=== PATIENT | female | born 1940 | race Caucasian/White ===

== ENCOUNTER → 2021-05-21 | Outpatient (CLI) | payer MEDICARE | END | disposition home or self-care (01) | LOC: LABPAT 08:47 | PROVIDERS: ATTEND Orthopaedic Surgery | DX: Z01.812 Encounter for preprocedural laboratory examination (principal); M17.12 Unilateral primary osteoarthritis, left knee; Z22.322 Carrier or suspected carrier of Methicillin resistant Staphylococcus aureus | CPT/HCPCS: 87070 ==

== ENCOUNTER → 2021-06-05 | Outpatient (CLI) | payer MEDICARE | END | disposition home or self-care (01) | LOC: LABPAT 09:05 | PROVIDERS: ATTEND Orthopaedic Surgery | DX: Z01.818 Encounter for other preprocedural examination (principal); M17.12 Unilateral primary osteoarthritis, left knee; Z22.322 Carrier or suspected carrier of Methicillin resistant Staphylococcus aureus | CPT/HCPCS: 93005 ==

== ENCOUNTER 2021-06-18 11:06 | Day surgery (SDC) | payer MEDICARE, OTHER ==
[2021-06-12 09:26] VITALS: BMI 23.8
--- NOTE | 2021-06-17 11:27 | HP ---
HISTORY AND PHYSICAL DATE OF SURGERY: 06/18/2021 Josef Mckeon is a 80-year-old patient seen with symptomatic left knee osteoarthritis. After treatment options were discussed with her, she elected to proceed with left total knee arthroplasty. Consent regarding the procedure was obtained. Medical clearance was provided by Dr. Farhan Mac. PAST MEDICAL HISTORY: Anxiety. PAST SURGICAL HISTORY: Total hip arthroplasty. DAILY MEDICATIONS: , Celebrex. ALLERGIES: PENICILLIN. SOCIAL HISTORY: She denies current tobacco use. PHYSICAL EVALUATION OF THE LEFT KNEE: Range of motion is negative 2/3 to 115. Tenderness, medial joint line. Crepitus, medial and patellofemoral compartments with range of motion. Pain with patellofemoral compression. Ligaments stable. Hip rotation without pain. Distal neurovascular exam is intact. RADIOGRAPHS: Radiographs of the left knee revealed severe osteoarthritic changes. IMPRESSION: Left knee osteoarthritis. PLAN: Left total knee arthroplasty. MMODL / IJN: [id number] /
[~2021-06-18 11:06] MED LIST: ACETAMINOPHEN TAB 500 MG TAB PO PRN; DEXAMETHASONE SOD PHOSPHATE 4 MG/ML 1 ML VIAL IV ONE; LACTATED RINGERS 1,000 ML IV SCH; MELOXICAM 7.5 MG TAB PO PRN; MIDAZOLAM 2 MG/2 ML VIAL IV PRN; MORPHINE SULFATE 2 MG/ML SYRINGE IV PRN; ONDANSETRON 4 MG/2 ML VIAL IVP ONE; ROPIVACAINE/EPI/CLONIDINE/KET 50 ML SYRINGE MISCELLANE PRN; TRANEXAMIC ACID 1,000 MG in SODIUM CHLORIDE 0.9% 100 ML IVPB PRN
[2021-06-18] MEDS ORDERED: fentaNYL (PF) 50 MCG/ML 2 ML AMP IVP ONE (12:23)
[2021-06-18] MEDS ORDERED: MIDAZOLAM 2 MG/2 ML VIAL IVP ONE (12:23)
[2021-06-18] MEDS ORDERED: SODIUM CHLORIDE 0.9% 100 ML BAG ONE (12:52)
[2021-06-18] MEDS ORDERED: TRANEXAMIC ACID 1,000 MG/10 ML VIAL ONE (12:52)
[2021-06-18] MEDS ORDERED: ROPIVACAINE 5 MG/ML 30 ML VIAL ONE (12:52)
[2021-06-18] MEDS ORDERED: MIDAZOLAM 2 MG/2 ML VIAL ONE (12:52)
[2021-06-18] MEDS ORDERED: SODIUM CHLORIDE 0.9% (PF) 10 ML VIAL ONE (12:52)
[2021-06-18] MEDS ORDERED: fentaNYL (PF) 50 MCG/ML 2 ML AMP ONE (12:52)
[2021-06-18] MEDS ORDERED: PROPOFOL 10 MG/ML 20 ML VIAL IV ONE (12:52)
[2021-06-18] MEDS ORDERED: ceFAZolin 1,000 MG in SODIUM CHLORIDE 0.9% 1,000 ML IRRIGATION ONE (13:28)
--- NOTE | 2021-06-18 14:25 | P.ANPRN ---
Procedure Note - Anesthesia - Nerve Block Performed Right Adductor Canal Infusion Time Out Performed: Yes (1222) Date of Procedure: 06/18/21 Procedure Start Time: :23 Procedure Stop Time: : Location of Patient: PreOp Indication: Acute Post-Operative Pain, Requested by Surgeon Specifically requested for management of pain by DrDiallo: Hadley Kulkarni Sedation Type: Sedate with meaningful contact maintained Preparation: Sterile Prep Position: Supine Catheter Depth at Skin (cm): 8 Catheter: Indwelling Needle Types: Pajunk Needle Gauge: 21 Ultrasound used to visualize needle placement: Yes Ultrasound used to observe medication spread: Yes Injectate: 0.5% Ropivacaine (see comment for volume) Blood Aspirated: No Pain Paresthesia on Injection Noted: No Resistance on Injection: Normal Image Stored and Saved: Yes Events: Uneventful and Well Tolerated
--- NOTE | 2021-06-18 14:26 | P.ANPRN ---
Procedure Note - Anesthesia - Nerve Block Performed Left iPack Single Time Out Performed: Yes (1222) Date of Procedure: 06/18/21 Procedure Start Time: 12:29 Procedure Stop Time: 12:34 Location of Patient: PreOp Indication: Acute Post-Operative Pain, Requested by Surgeon Specifically requested for management of pain by DrDiallo: Hadley Kulkarni Sedation Type: Sedate with meaningful contact maintained Preparation: Sterile Prep Position: Supine Catheter: None Needle Types: Pajunk Needle Gauge: 21 Ultrasound used to visualize needle placement: Yes Ultrasound used to observe medication spread: Yes Injectate: 0.5% Ropivacaine (see comment for volume) (15cc + nacl pf 5cc) Blood Aspirated: No Pain Paresthesia on Injection Noted: No Resistance on Injection: Normal Image Stored and Saved: Yes Events: Uneventful and Well Tolerated
[2021-06-18] MEDS ORDERED: HYDROcodone/APAP 5-325MG 1 EACH TAB PO PRN (14:30)
[2021-06-18] MEDS ORDERED: HYDROmorphone 0.2 MG/1 ML SYRINGE IVP PRN (14:30)
[2021-06-18] MEDS ORDERED: ONDANSETRON 4 MG/2 ML VIAL IVP PRN (14:30)
[2021-06-18] MEDS ORDERED: HYDROmorphone 0.5 MG/0.5 ML SYRINGE IVP PRN ×2 (14:30)
[2021-06-18] MEDS ORDERED: NALOXONE 0.4 MG/ML 1 ML VIAL IV PRN (14:30)
[2021-06-18] MEDS ORDERED: SODIUM CHLORIDE 0.9% 1,000 ML IV SCH (14:30)
--- NOTE | 2021-06-18 14:30 | P.OP ---
Date of Procedure: 06/18/21 Preoperative Diagnosis: Left knee osteoarthritis Postoperative Diagnosis: Left knee osteoarthritis Procedure(s) Performed: Left total knee arthroplasty Implants: 1. Depuy attune size 3 left cruciate retaining cemented femur 2. Depuy attune size 3 fixed bearing cemented tibial baseplate 3. Depuy attune size 3 fixed bearing cruciate retaining 8 mm polyethylene tibial insert 4. Depuy attune 38 mm all polyethylene cemented patella Anesthesia: regional (Adductor canal catheter, Ipack block), spinal Surgeon: Hadley Kulkarni [employer] Dealer #1: Bishop Crain Estimated Blood Loss (ml): 40 Pathology: other (Bone) Condition: stable Disposition: PACU Indications for Procedure: 80-year-old patient seen with symptomatic left knee osteoarthritis. After treatment options were discussed, she elected to proceed with total knee a rthroplasty. Operative Findings: See description of procedure Description of Procedure: Patient was taken to the operative suite after having an adductor canal catheter placed by the department of anesthesia as well as and Ipack block for postoperative pain management Patient underwent a spinal anesthetic by the department of anesthesia. Patient was given preoperative IV intake antibiotics and TXA. A well-padded tourniquet was placed about the left lower extremity. The lower extremity was then prepped and draped in the normal sterile orthopedic fashion. The extremity was elevated, a tourniquet was insufflated to 300. A standard anterior incision was made sharply through skin. Dissection was taken down through the subcutaneous soft tissues down to the extensor mechanism. A medial arthrotomy was performed, patella was everted and knee was flexed. There was advanced osteoarthritis noted. I introduced my distal intramedullary fe moral drill. I then introduced the distal femoral cutting jig. Yazan PARKER secured the cutting jig with 2 pins. I held retractors in position while Yazan PARKER performed the distal femoral resection through the guide area we now removed her distal femoral cutting guide. We now placed our 4-in-1 femoral cutting block and positioned and it was secured with 2 pins by Yazan PARKER while I held the block in position. The distal femoral finishing was now completed. A proximal tibial cutting guide was positioned. I held the guide in the appropriate position with both hands well Yazan PARKER inserted stabilizing pins into the guide. Proximal tibial cut was made. We now placed a trial femoral component into position, along with an appropriate size tibial tray and insert. We now took the knee through range of motion and had full extension good flexion and good overall soft tissue balance noted. The patella was everted and stabilized with 2 towel clips held by Yazan PARKER while I performed a flush with patellar quad tendon utilizing a fresh sawblade. We templated the patella, appropriate drill holes were made. An appropriate trial patella was positioned, knee was taken through full range of motion with the patella tracking very nicely. The trial patella was removed. Drill holes were made through the femoral component. All trial components were removed after mar tiffany off the appropriate rotation of the tibia. Retractors were now positioned along the proximal tibia. An appropriate keel punch was made with the appropriate size tibial guide by myself on Yazan PARKER assisted by holding retractors. At this point appropriate size implants were chosen and opened. The joint was irrigated copiously with pulse lavage mechanical irrigation. The posterior capsule was infiltrated with local analgesic. The wound was irrigated with pulse lavage mechanical irrigation. We mixed antibiotic methylmethacrylate. We placed the knee into flexion. We placed multiple retractors assisted by Yazan PARKER to expose the proximal tibia. Once the methyl methacrylate was ready, the tibial component was cemented into place removing any excess methylmethacrylate form by both myself and Yazan PARKER. The femoral component was cemented into place removing the removing any excess methylmethacrylate performed by both myself and Yazan PARKER. We then inserted the appropriate size polyethylene tibial insert. We made sure that it was locked into position. We took the knee into full extension, and then back in a flexion making sure we had removed any excess methylmethacrylate. The patellar component was then cemented down and secured with clamp. Excess methylmethacrylate removed. We kept the knee in full extension, patellar clamp in position until methylmethacrylate had hardened. Once it had hardened the patellar clamp was removed. The knee was taken through full range of motion. The patella tracked nicely. There was good soft tissue balancing. The tourniquet was now released. Additional hemostasis was achieved via electrocautery. A second gram of TXA was given. The wound again was irrigated with pulse lavage mechanical irrigation. The superficial soft tissues were infiltrated local analgesic. The extensor mechanism was repaired with Vicryl. We checked the repair with range of motion and it was stable. The subcutaneous soft tissues were repaired with Vicryl in layers. The skin was approximated with pernio/Dermabond. Sterile dressings were applied followed by loose web roll and Son bandage. The patient was transferred to a bed, and taken to recovery in stable and satisfactory condition. Yazan PARKER assisted with this complex procedure.
[2021-06-18] MEDS ORDERED: LACTATED RINGERS 1,000 ML IV ONE (14:35)
[2021-06-18] MEDS ORDERED: ROPIVACAINE 0.2%-NS ON-Q PUMP 2 MG/ML EACH MISCELLANE ONE (15:06)
--- NOTE | 2021-06-18 15:08 | XR ---
EXAMINATION TYPE: XR knee limited LT DATE OF EXAM: 06/18/2021 CLINICAL HISTORY: Left knee pain and arthritis status post total knee replacement. TECHNIQUE: Portable AP and crosstable lateral views of the left knee are obtained immediately postop eratively. COMPARISON: None FINDINGS: Metallic hardware from total left knee arthroplasty is seen and appears satisfactory in al ignment and position. There is evidence of recent surgery with diffuse subcutaneous gas and soft tis yulisa swelling noted. IMPRESSION: METALLIC HARDWARE FROM TOTAL LEFT KNEE ARTHROPLASTY IS SATISFACTORY IN ALIGNMENT.
[2021-06-18] MEDS: INSULIN ASPART (NovoLOG) 100 UNIT/ML VIAL SQ SCH ×2 (18:20→18:21)
[2021-06-18 20:35] VITALS: RESP 16
[2021-06-18] MEDS: ENOXAPARIN 30 MG/0.3 ML SYRINGE SQ SCH (20:38)
[2021-06-18] MEDS ORDERED: SENNOSIDES-DOCUSATE SODIUM 1 EACH TAB PO SCH (21:00)
[2021-06-18] MEDS: HYDROcodone/APAP 5-325MG 1 EACH TAB PO PRN (23:46)
--- NOTE | 2021-06-19 07:00 | P.PN ---
Progress Note - Text Progress Note Date: 06/19/21 (121) Anesthesiology Postop day 1 status post total knee arthroplasty with adductor canal catheter. Patient doing well. VAS 6 out of 10tolerable . [Gross strength intact in lower extremity]. [Afebrile]. [Denies alterations in sensorium]. [Catheter site intact]. Heart [regular rate] Lungs [nonlabored] Abdomen [nondistended] Assessment: Postop day [1] status post total knee arthroplasty with adductor canal catheter Plan: All questions answered. Maintain catheter [2] more days with patient removal at home. Instructions were given at discharge.[]
[2021-06-19 07:32] VITALS: BP 137/75; PULSE 74; TEMP 97.9
--- NOTE | 2021-06-19 07:49 | P.PN ---
Subjective Progress Note Date: 06/19/21 Principal diagnosis: Status post left total knee arthroplasty Patient is evaluated today at bedside, she is resting comfortably. She is up in the chair eating breakfast at this time. She has no acute pain at this time. She has ambulated minimally, she is here to work with physical therapy. She denies any headaches, lightheadedness, chest pain or shortness of breath. Objective - Vital Signs Vital signs: Vital Signs Temp 97.9 F 06/19/21 07:31 Pulse 74 06/19/21 07:31 Resp 16 06/19/21 07:31 BP 137/75 06/19/21 07:31 Pulse Ox 92 L 06/19/21 07:31 Intake & Output 06/18/21 06/19/21 06/19/21 18:59 06:59 18:59 Intake Total 1451 Output Total 40 Balance 1411 Weight 55.8 kg Intake: IV 1451 Output: Estimated Blood Loss 40 Other: # Voids 0 5 1 - Exam Left lower extremity: Incision is clean, dry, and intact. The exofin fusion tape is in good condition. There is minimal soft tissue swelling and ecchymosis surrounding the medial and lateral aspects of the incision. Calf is soft, no tenderness with palpation. Plantar flexion, dorsiflexion, EHL, FHL are intact. Sensory exam to light touch throughout the extremity is intact, dorsal pedis pulses 2+. Assessment and Plan Assessment: Postop day #1 status post left total knee arthroplasty Plan: Pain control, continue with current oral medications GI and DVT prophylaxis, continue subcu medication while inpatient, plan for discharge on aspirin 81 mg twice a day for 30 days Wound care instructions were discussed Icing and elevating techniques discussed Home physical therapy and nursing after discharge Encourage incentive spirometer Medical recommendations Discharge planning: Patient is eager to be discharged to home today, we will monitor her progress after working with physical therapy. Time with Patient: Less than 30
[2021-06-19] MEDS ORDERED: PREGABALIN 75 MG CAP PO SCH (09:00)
[2021-06-19] MEDS: HYDROcodone/APAP 5-325MG 1 EACH TAB PO PRN (09:16)
[2021-06-19] MEDS: ENOXAPARIN 30 MG/0.3 ML SYRINGE SQ SCH (09:20)
[2021-06-19 09:35] LABS: Basophils # (A) 0.02 X 10*3/uL (0.00-0.10); Basophils % (A) 0.2 %; Eosinophils # (A) 0.01 X 10*3/uL (0.04-0.35); Eosinophils % (A) 0.1 %; HCT 33.7 % (37.2-46.3); Lymphocytes # (A) 1.22 X 10*3/uL (0.90-5.00); Lymphocytes % (A) 12.8 %; MCHC 32.6 g/dL (32.0-37.0); MCV 94.9 fL (80.0-97.0); Mean Platelet Volume 11.6 fL (9.5-12.2); Monocytes # (A) 0.71 X 10*3/uL (0.20-1.00); Monocytes % (A) 7.4 %; Neutrophils # (A) 7.57 X 10*3/uL (1.80-7.70); Neutrophils % (A) 79.2 %; Platelet Count 181 X 10*3/uL (140-440); RBC 3.55 X 10*6/uL (4.10-5.20); RDW 12.4 % (11.5-14.5); WBC 9.56 X 10*3/uL (4.50-10.00)
--- NOTE | 2021-06-19 12:41 | P.CONS ---
History of Present Illness - Reason for Consult Consult date: 06/19/21 Medical management - History of Present Illness HISTORY OF PRESENT ILLNESS This is a 80-year-old female patient of Dr. Kt Mac with past medical history of osteoarthritis, osteoporosis. Patient was brought in the hospital under the care of Dr. Kulkarni for left knee arthroplasty, postop day #1. Patient is scheduled to work with physical therapy today. She states her knee is sore but no significant pain. Her last bowel movement was yesterday prior to coming to the hospital. She states she did get some dizziness when she got out of bed. Patient is reaching 1200 on incentive spirometry. Patient is cleared from medicine for discharge. Medication reconciliation reviewed. REVIEW OF SYSTEMS Constitutional: No fever, no chills, no night sweats. No weight change. No weakness, fatigue or lethargy. No daytime sleepiness. EENT: No headache. No blurred vision or double vision, no loss of vision. No l oss of Hearing, no ringing in the ears, no dizziness. No nasal drainage or congestion. No epistaxis. No sore throat. Lungs: No shortness of breath, cough, no sputum production. No wheezing. Cardiovascular: No chest pain, no lower extremity edema. No palpitations. No paroxysmal nocturnal dyspnea. No orthopnea. No lightheadedness or dizziness. No syncopal episodes. Abdominal: No abdominal pain. No nausea, vomiting. No diarrhea. No constipation. No bloody or tarry stools.. No loss of appetite. Genitourinary: No dysuria, increased frequency, urgency. No urinary retention. Musculoskeletal: No myalgias. No muscle weakness, no gait dysfunction, no frequent falls. No back pain. No neck pain. Mild knee discomfort. Integumentary: No wounds, no lesions. No rash or pruritus. No unusual bruising. No change in hair or nails. Neurologic: No aphasia. No facial droop. No change in mentation. No head injury. No headache. No paralysis. No paresthesia. Psychiatric: No depression. No anxiety. No mood swings. Endocrine: No abnormal blood sugars. No weight change. No excessive sweating or thirst. No cold intolerance. SOCIAL HISTORY The patient is a lifelong nonsmoker, no illicit drug use, no alcohol use. Patient lives alone. Her son is staying with her after discharge from the hospital. FAMILY HISTORY Mother at age 79 with history of coronary artery disease. Father at age 86 from emphysema. Patient has 1 brother that from myocardial infarction at age 46. Patient does not have any sisters. Patient's 3 sons with no major medical problems. PHYSICAL EXAMINATION Gen: This is a 80-year-old female. Patient is resting in bed appears to be comfortable and in no acute distress. HEENT: Head is atraumatic, normocephalic. Pupils equal, round. Sclerae is anicteric. NECK: Supple. No JVD. No lymphadenopathy. No thyromegaly. LUNGS: Clear to auscultation. No wheezes or rhonchi. No intercostal retractions. HEART: Regular rate and rhythm. No murmur. ABDOMEN: Soft. Bowel sounds are present. No masses. No tenderness. EXTREMITIES: No pedal edema. No calf tenderness. Mild edema to the left knee. Dressing midline with no breakthrough bleeding or draining. NEUROLOGICAL: Patient is awake, alert and oriented x3. Cranial nerves 2 through 12 are grossly intact. ASSESSMENT AND PLAN 1. Osteoarthritis status post left knee arthroplasty, postoperative day #1. Continue PT/OT, activity per orthopedics, pain management, DVT prophylaxis is L ovenox. Continue incentive spirometry to reduce incidence of atelectasis and hospital-acquired pneumonia.. 2. Generalized osteoarthritis, stable. 3. Osteoporosis, stable. 4. DVT prophylaxis. Lovenox. DISCHARGE PLAN Home with [facility]. Impression and plan of care have been directed as dictated by the signing physician. Heena Tilley nurse practitioner acting as scribe for signing physician. Past Medical History Past Medical History: Osteoarthritis (OA) History of Any Multi-Drug Resistant Organisms: None Reported Past Surgical History: Orthopedic Surgery Additional Past Surgical History / Comment(s): surgery for ectopic , surgery for fx rt hip with carol, alysa cataracts Past Anesthesia/Blood Transfusion Reactions: No Reported Reaction Past Psychological History: Depression Smoking Status: Former smoker Past Alcohol Use History: None Reported Additional Past Alcohol Use History / Comment(s): quit smoking 1990, smoked for 10 yrs Past Drug Use History: None Reported - Past Family History Mother Family Medical History: No Reported History Medications and Allergies Home Medications Medication Instructions Recorded Confirmed Type Alendronate Sodium [Fosamax] 70 mg PO 06/12/21 06/12/21 History Celecoxib [CeleBREX] 200 mg PO DAILY 06/12/21 06/12/21 History Sennosides-Docusate Sodium 2 each PO HS tab 06/19/21 Rx [Senokot-S] Allergies Allergy/AdvReac Type Severity Reaction Status Date / Time Penicillins Allergy Swelling Verified 06/18/21 11:33 of joints Physical Exam Vitals: Vital Signs Temp Pulse Pulse Resp BP Pulse Ox 06/19/21 07:31 97.9 F 74 16 137/75 92 L 06/19/21 02:00 98.9 F 82 16 148/74 91 L 06/18/21 20:00 97.5 F L 90 16 138/62 92 L 06/18/21 19:31 97.5 F L 95 17 138/62 92 L 06/18/21 17:11 97.5 F L 89 18 148/75 96 06/18/21 16:32 64 18 146/87 97 06/18/21 16:02 63 18 145/62 95 06/18/21 15:32 66 18 139/72 95 06/18/21 15:17 63 20 117/62 96 06/18/21 15:02 61 18 133/56 99 06/18/21 14:50 98.1 F 77 16 123/64 99 06/18/21 12:32 68 16 144/67 100 06/18/21 11:38 96.8 F L 79 16 167/78 97 Intake and Output 06/18/21 06/19/21 06/19/21 22:59 06:59 14:59 Intake Total 400 Balance 400 Intake: IV 400 Other: # Voids 0 5 1 Weight 55.8 kg Results CBC & Chem 7: 06/19/21 05:33 Labs: Abnormal Lab Results - Last 24 Hours (Table) 06/19/21 Range/Units 05:33 RBC 3.55 L (4.10-5.20) X 10*6/uL Hgb 11.0 L (12.0-15.0) g/dL Hct 33.7 L (37.2-46.3) % Eosinophils # 0.01 L (0.04-0.35) X 10*3/uL
--- NOTE | 2021-06-19 12:47 | P.DS ---
Providers Date of admission: 06/18/2021 Expected date of discharge: 06/19/21 Attending physician: Hadley Kulkarni Consults: 06/18/21 14:30 Consult Physician Routine Consulting Provider: Vale Aguilar Consult Reason/Comments: Medical management Do you want consulting provider notified?: Yes Primary care physician: [facility] Course: Date of admission: 06/18/2020 Date of discharge: 06/19/2021 Admission diagnosis: Left knee osteoarthritis Discharge diagnosis: Same Attending physician: Dr. Kulkarni Surgical procedures: Left total knee arthroplasty Brief history: Patient is a 80-year-old female with a history of progressive primary left knee osteoarthritis. At this point patient has failed conservative treatment measures and has opted to proceed with a elective left total knee arthroplasty. Hospital course: Details of patient's surgery can be found in operative report. Patient tolerated the procedure well and was subsequently transported to orthopedic floor. Patient's orthopeidc and medical care was provided daily. Patient had daily laboratory tests performed for evaluation of overall blood counts. Patient had daily physical therapy to include strengthening range of motion as well as education with walker ambulation. Patient was treated with Lovenox for their postoperative DVT prophylaxis during their inpatient stay. Patient was noted to have a relatively uneventful postoperative course. Patient reported satisfactory pain control with oral pain medications by postoperative day 1. Patient showed satisfactory progress with physical therapy. Patient moved steadily through the program and had no difficulty meeting the goals by postoperative day 1. Given patient's otherwise satisfactory course and having met physical therapy goals, plan is to discharge patient home on postoperative day 1. Discharge condition/disposition: Patient will be discharged home in stable condition. Discharge medications: Instructions are given on resumption of patient's normal daily medications per primary care recommendation, in addition patient will be prescribed Pelham 5 mg/325 mg; Lyrica 75 mg; aspirin 81 mg twice a day 30 days; Colace. Discharge instructions: 1. Wound care and infection precautions, keep incision dry and covered while showering, no lotions, creams, moisturizers. No soaking, tubs, pools, hottubs. Do not scrub over the incision. 2. Weight-bear as tolerated with walker / cane until follow-up. 3. Ice and elevate when necessary. Do not exceed 20 minutes per hour with ice pack. 4. Utilize compression sleeve until seen at first follow up appointment. 5. Visiting nursing care. 6. Home physical therapy including home CPM. 7. Pain meds and anticoagulants per prescription. 8. Pain medication has potential to cause constipation. Increase oral fluid and fiber intake. Contact primary care provider if you have not had a bowel movement within 48 hours after discharge 9. No anti-inflammatory medication until discussed at first post operative visit, this including Motrin, Aleve, Mobic, Diclofenac. 10. Follow up in office at 2 weeks postop with Yazan Crain PA-C / Piotr Wagoner PA-C 11. Follow up with your primary care doctor 7-10 days after discharge. 12. Contact [facility] with any questions, . Assessment: Left knee osteoarthritis Procedures: Left total knee arthroplasty Patient Condition at Discharge: Good Plan - Discharge Summary Discharge Rx Participant: No New Discharge Prescriptions: New Sennosides-Docusate Sodium [Senokot-S] 2 each PO HS tab HYDROcodone/APAP 5-325MG [Pelham 5-325] 1 tab PO Q6HR PRN #24 tab PRN Reason: Pain Aspirin [Adult Low Dose Aspirin EC] 81 mg PO BID #60 tab Pregabalin [Lyrica] 75 mg PO BID #21 cap Continue Alendronate Sodium [Fosamax] 70 mg PO TH Celecoxib [CeleBREX] 200 mg PO DAILY Discharge Medication List Alendronate Sodium [Fosamax] 70 mg PO TH 06/12/21 [History] Celecoxib [CeleBREX] 200 mg PO DAILY 06/12/21 [History] Aspirin [Adult Low Dose Aspirin EC] 81 mg PO BID #60 tab 06/19/21 [Rx] HYDROcodone/APAP 5-325MG [Pelham 5-325] 1 tab PO Q6HR PRN #24 tab 06/19/21 [Rx] Pregabalin [Lyrica] 75 mg PO BID #21 cap 06/19/21 [Rx] Sennosides-Docusate Sodium [Senokot-S] 2 each PO HS tab 06/19/21 [Rx] Follow up Appointment(s)/Referral(s): [facility], [NON-STAFF] - 1-2 Days Bishop Crain PAC [PHYSICIAN TURBINATED BONE GRINDER] - 2 Weeks Kt Mac MD [Primary Care Provider] - 1 Week Patient Instructions/Handouts: *Surgery [facility] - On-Q Pain Pump Discharge Instructions, Joint Replacement Surgery (DC) Activity/Diet/Wound Care/Special Instructions: CPM Device will be delivered tomorrow (06/20) am. The company supplying the DME is [employer] and they can be reached at [phone] if any questions. Orthopedic Discharge Instructions: 1. Wound care and infection precautions, keep incision dry and covered while showering, no lotions, creams, moisturizers. No soaking, pools, hot tubs. Do not scrub over incision. 2. Weight-bear as tolerated with walker / cane until follow-up. 3. Ice and elevate when necessary. Do not exceed 20 minutes per hour with ice pack. 4. Utilize compression sleeve until seen at first follow up appointment. 5. Pain meds and anticoagulants per prescription. 6. Pain medication has potential to cause constipation. Increase oral fluid and fiber intake. Contact primary care provider if you have not had a bowel movement within 48 hours after discharge. 7. No anti-inflammatory medication until discussed at first post operative visit, this including Motrin, Aleve, Mobic, Diclofenac. 8. Follow up in office at 2 weeks postop with Yazan Crain PA-C/Piotr Wagoner PA-C 9. Follow up with your primary care doctor 7-10 days after discharge. 10. Contact [facility] with any questions, . Wound care instructions: 1. Okay to remove foam dressing on 06/21/2021 2. Keep incision covered and dry while showering Discharge Disposition: HOME WITH HOME HEALTH SERVICES
== END 2021-06-19 14:07 | disposition home health service (06) ==
LOC: OR 11:06 → 4SSUR 14:50 → OR 06-19 14:07
PROVIDERS: ATTEND Orthopaedic Surgery
DX: M17.12 Unilateral primary osteoarthritis, left knee (principal); F41.9 Anxiety disorder, unspecified; Z88.0 Allergy status to penicillin; Z79.899 Other long term (current) drug therapy; F32.9 Major depressive disorder, single episode, unspecified; Z87.891 Personal history of nicotine dependence
CPT/HCPCS: 97161; 64999; 64448; 76942; 85025; 88300; 87635; 73560; 27447; C1776; C1713 ×2; J2250; J1100; J0690 ×3; J2405; J3010; J1650 ×2; J2795 ×2; J2704

== ENCOUNTER → 2022-01-23 | Outpatient (CLI) | payer MEDICARE | END | disposition home or self-care (01) | LOC: LABPAT 08:36 | PROVIDERS: ATTEND Orthopaedic Surgery | DX: Z01.812 Encounter for preprocedural laboratory examination (principal); Z22.322 Carrier or suspected carrier of Methicillin resistant Staphylococcus aureus; M17.11 Unilateral primary osteoarthritis, right knee | CPT/HCPCS: 87070 ==

== ENCOUNTER 2022-02-04 08:01 | Day surgery (SDC) | payer MEDICARE ==
[2022-01-31 16:01] VITALS: BMI 23.0
--- NOTE | 2022-02-03 12:29 | HP ---
HISTORY AND PHYSICAL DATE OF SURGERY: 02/04/2022 Josef Mckeon is an 81-year-old patient seen with symptomatic right knee osteoarthritis. We discussed options for treatment. She elected to proceed with right total knee arthroplasty. Consent was obtained. Medical clearance was provided by Dr. Farhan Mac. PAST MEDICAL HISTORY: Anxiety. PAST SURGICAL HISTORY: Left total knee arthroplasty. DAILY MEDICATIONS: Celebrex, . ALLERGIES: PENICILLIN. SOCIAL HISTORY: She denies current tobacco use. PHYSICAL EVALUATION OF THE RIGHT KNEE: Her range of motion is negative 2 to 90. She has a moderate effusion. Tenderness along the medial and lateral joint lines. Crepitus, medial and lateral compartments with range of motion. Pain with patellofemoral compression. Ligaments stable. Hip rotation without pain. Distal neurovascular exam is intact. Radiographs of the right knee revealed severe osteoarthritic changes. IMPRESSION: Right knee osteoarthritis. PLAN: Right total knee arthroplasty. MMODL / IJN: [id number] /
[~2022-02-04 08:01] MED LIST changes: +HYDROmorphone 0.5 MG/0.5 ML SYRINGE IVP PRN; -LACTATED RINGERS 1,000 ML IV SCH; +LIDOCAINE 1% (10MG/ML) FOR IV START INTRADERMA PRN; -MORPHINE SULFATE 2 MG/ML SYRINGE IV PRN; -ROPIVACAINE/EPI/CLONIDINE/KET 50 ML SYRINGE MISCELLANE PRN; -TRANEXAMIC ACID 1,000 MG in SODIUM CHLORIDE 0.9% 100 ML IVPB PRN; +TRANEXAMIC ACID IN NACL,ISO-OS 1,000 MG in SALINE 1 100ML.BAG IVPB PRN
[2022-02-04] MEDS: LACTATED RINGERS 1,000 ML IV SCH (09:04)
[2022-02-04] MEDS ORDERED: MIDAZOLAM 2 MG/2 ML VIAL IVP ONE (09:34)
[2022-02-04] MEDS ORDERED: fentaNYL (PF) 50 MCG/ML 2 ML AMP IVP ONE (09:35)
[2022-02-04] MEDS ORDERED: fentaNYL (PF) 50 MCG/ML 2 ML AMP ONE (10:14)
[2022-02-04] MEDS ORDERED: MIDAZOLAM 2 MG/2 ML VIAL ONE (10:14)
[2022-02-04] MEDS ORDERED: ROPIVACAINE 5 MG/ML 30 ML VIAL ONE (10:14)
[2022-02-04] MEDS ORDERED: LIDOCAINE 2% INJ 20 MG/ML (2 ML VIAL) ONE (10:14)
[2022-02-04] MEDS ORDERED: PHENYLEPHRINE-0.9% NACL SYG 1,000 MCG/10 ML SYRINGE ONE (10:14)
[2022-02-04] MEDS ORDERED: TRANEXAMIC ACID IN NACL,ISO-OS 1,000 MG/100 ML BAG ONE (10:14)
[2022-02-04] MEDS ORDERED: ROPIVACAINE 0.2%-NS ON-Q PUMP 1,090 MG, EMPTY PAIN BALL 1 EACH MISCELLANE PRN (10:33)
--- NOTE | 2022-02-04 10:38 | P.ANPRN ---
Procedure Note - Anesthesia - Nerve Block Performed Right Adductor Canal Infusion Time Out Performed: Yes ([id number]) Date of Procedure: 02/04/22 Procedure Start Time: 09:33 Procedure Stop Time: 09:44 Location of Patient: PreOp Indication: Dx/Pain Location (Right knee), Requested by Surgeon Specifically requested for management of pain by DrDiallo: Hadley Kulkarni Sedation Type: Sedate with meaningful contact maintained Preparation: Sterile Prep, Sterile Dressing Position: Supine Catheter: Indwelling Needle Types: Pajunk Needle Gauge: 18 Ultrasound used to visualize needle placement: Yes Ultrasound used to observe medication spread: Yes Injectate: 0.5% Ropivacaine (see comment for volume) (20 cc) Blood Aspirated: No Pain Paresthesia on Injection Noted: No Events: Uneventful and Well Tolerated Right iPack Single Time Out Performed: Yes Date of Procedure: 02/04/22 Procedure Start Time: 09:46 Procedure Stop Time: 09:51 Location of Patient: PreOp Indication: Acute Post-Operative Pain, Dx/Pain Location (Right Knee Pain), Requested by Surgeon Specifically requested for management of pain by DrDiallo: Hadley Kulkarni Sedation Type: Sedate with meaningful contact maintained Preparation: Sterile Prep Position: Left Lateral Catheter: None Needle Types: Pajunk Needle Gauge: 21 Ultrasound used to visualize needle placement: Yes Ultrasound used to observe medication spread: Yes Injectate: 0.5% Ropivacaine (see comment for volume) (20 cc) Blood Aspirated: No Pain Paresthesia on Injection Noted: No Resistance on Injection: Normal Image Stored and Saved: Yes Events: Uneventful and Well Tolerated
[2022-02-04] MEDS ORDERED: ceFAZolin 1,000 MG in SODIUM CHLORIDE 0.9% 1,000 ML IRRIGATION ONE (10:48)
[2022-02-04] MEDS ORDERED: LACTATED RINGERS 1,000 ML IV ONE (11:45)
[2022-02-04] MEDS ORDERED: HYDROcodone/APAP 5-325MG 1 EACH TAB PO PRN (11:49)
[2022-02-04] MEDS ORDERED: HYDROmorphone 0.5 MG/0.5 ML SYRINGE IVP PRN ×3 (11:49)
[2022-02-04] MEDS ORDERED: NALOXONE 0.4 MG/ML 1 ML VIAL IV PRN (11:49)
[2022-02-04] MEDS ORDERED: ONDANSETRON 4 MG/2 ML VIAL IVP PRN (11:49)
--- NOTE | 2022-02-04 11:49 | P.OP ---
Date of Procedure: 02/04/22 Preoperative Diagnosis: Right knee osteoarthritis Postoperative Diagnosis: Right knee osteoarthritis Procedure(s) Performed: Right total knee arthroplasty Implants: 1. Depuy attune size 3 right cruciate retaining cemented femur 2. Depuy attune size 3 fixed bearing cemented tibial baseplate 3. Depuy attune size 3 fixed bearing cruciate retaining 14 mm polyethylene tibial insert 4. Depuy attune 35 mm all polyethylene cemented patella Anesthesia: regional (Adductor canal catheter, Ipack block), spinal Surgeon: Hadley Kulkarni Consulting Senior Practice Director #1: Piotr Wagoner Estimated Blood Loss (ml): 50 Pathology: other (Bone) Condition: stable Disposition: PACU Indications for Procedure: 81-year-old patient seen with symptomatic right knee osteoarthritis. After treatment options were discussed, she elected to proceed with total knee a rthroplasty. Operative Findings: See description of procedure Description of Procedure: Patient was taken to the operative suite after having an adductor canal catheter placed by the department of anesthesia. Patient underwent a spinal anesthetic by the department of anesthesia. Patient was given preoperative IV intake antibiotics and TXA. A well-padded tourniquet was placed about the right lower extremity. The lower extremity was then prepped and draped in the normal sterile orthopedic fashion. The extremity was elevated, a tourniquet was insufflated to 300. A standard anterior incision was made sharply through skin. Dissection was taken down through the subcutaneous soft tissues down to the extensor mechanism. A medial arthrotomy was performed, patella was everted and knee was flexed. There was advanced osteoarthritis noted. I introduced my distal intramedullary femoral drill. I then introduced the distal femoral cutting jig. Piotr PARKER secured the cutting jig with 2 pins. I held retractors in position while Piotr PARKER performed the distal femoral resection through the guide area we now removed her distal femoral cutting guide. We now placed our 4-in-1 femoral cutting block and positioned and it was secured with 2 pins by Piotr PARKER while I held the block in position. The distal femoral finishing was now completed. A proximal tibial cutting guide was positioned. I held the guide in the appropriate position with both hands while Piotr PARKER inserted stabilizing pins into the guide. Proximal tibial cut was made. We now placed a trial femoral component into position, along with an appropriate size tibial tray and insert. We now took the knee through range of motion and had full extension good flexion and good overall soft tissue balance noted. The patella was everted and stabilized with 2 towel clips held by Piotr PARKRE while I performed a flush with patellar quad tendon utilizing a fresh sawblade. We templated the patella, appropriate drill holes were made. An appropriate trial patella was positioned, knee was taken through full range of motion with the patella tracking very nicely. The trial patella was removed. Drill holes were made through the femoral component. All trial components were removed after marking off the appropriate rotation of the tibia. Retractors were now positioned along the proximal tibia. An appropriate keel punch was made with the appropriate size tibial guide by myself on Piotr PARKER assisted by holding retractors. At this point appropriate size implants were chosen and opened. The joint was irrigated copiously with pulse lavage mechanical irrigation. The posterior capsule was infiltrated with local analgesic. The wound was irrigated with pulse lavage mechanical irrigation. We mixed antibiotic methylmethacrylate. We placed the knee into flexion. We placed multiple retractors assisted by Piotr PARKER to expose the proximal tibia. Once the methyl methacrylate was ready, the tibial component was cemented into place removing any excess methylmethacrylate form by both myself and Piotr PARKER. The femoral component was cemented into place removing the removing any excess methylmethacrylate performed by both myself and Piotr PARKER. We then inserted the appropriate size polyethylene tibial insert. We made sure that it was locked into position. We took the knee into full extension, and then back in a flexion making sure we had removed any excess methylmethacrylate. The patellar component was then cemented down and secured with clamp. Excess methylmethacrylate removed. We kept the knee in full extension, patellar clamp in position until methylmethacrylate had hardened. Once it had hardened the pa tellar clamp was removed. The knee was taken through full range of motion. The patella tracked nicely. There was good soft tissue balancing. The tourniquet was now released. Additional hemostasis was achieved via electrocautery. A second gram of TXA was given. The wound again was irrigated with pulse lavage mechanical irrigation. The superficial soft tissues were infiltrated local analgesic. The extensor mechanism was repaired with Ethibond. We checked the repair with range of motion and it was stable. The subcutaneous soft tissues were repaired with Vicryl in layers. The skin was approximated with pernio/Dermabond. Sterile dressings were applied followed by loose web roll and Son bandage. The patient was transferred to a bed, and taken to recovery in stable and satisfactory condition. Piotr PARKER assisted with this complex procedure.
[2022-02-04] MEDS ORDERED: SODIUM CHLORIDE 0.9% 1,000 ML IV SCH (12:00)
--- NOTE | 2022-02-04 12:50 | XR ---
EXAMINATION TYPE: XR knee limited RT DATE OF EXAM: 02/04/2022 COMPARISON: NONE TECHNIQUE: Two views submitted HISTORY: Post op FINDINGS: There is a prosthetic knee in near anatomic alignment. There is soft tissue edema and emphysema. IMPRESSION: 1. Postoperative change. Appears in near-anatomic alignment
[2022-02-04] MEDS: HYDROcodone/APAP 5-325MG 1 EACH TAB PO PRN ×2 (16:24→22:57)
[2022-02-04] MEDS ORDERED: ACETAMINOPHEN TAB 325 MG TAB PO PRN (16:36)
[2022-02-04] MEDS ORDERED: SENNOSIDES-DOCUSATE SODIUM 1 EACH TAB PO SCH (21:00)
[2022-02-05] MEDS: LACTATED RINGERS 1,000 ML IV SCH (02:45)
[2022-02-05 02:48] VITALS: RESP 16
--- NOTE | 2022-02-05 07:43 | P.PN ---
Progress Note - Text Progress Note Date: 02/05/22 Postoperative day # 1 status post total knee arthroplasty, on adductor canal perineural catheter placed for postoperative analgesia. Ropivacaine 0.2% 8 mL per hour through ON-Q pump continuous infusion. Pain is well controlled. On visual analog scale 2/10 Patient is taking PRN oral pain medications. Catheter site: Looks Ok. There is no erythema or tenderness. Continue with the current pain management plan and will follow.
[2022-02-05] MEDS: HYDROcodone/APAP 5-325MG 1 EACH TAB PO PRN ×2 (07:53→13:27)
--- NOTE | 2022-02-05 08:15 | P.CONS ---
History of Present Illness - Reason for Consult Consult date: 02/05/22 - History of Present Illness HISTORY OF PRESENT ILLNESS This is an 81-year-old female patient of Dr. Kt Mac with past medical history of osteoarthritis, osteoporosis. Patient was brought in the hospital under the care of Dr. Kulkarni for right knee arthroplasty, postop day #1. Patient is scheduled to work with physical therapy today. She states her knee is sore but no significant pain. No lightheadedness or dizziness, no nausea or vomiting. Blood pressure is stable. Patient states her discharge plan is to return home with home care as she did before when she had her left knee done in June. Medication reconciliation reviewed For discharge. REVIEW OF SYSTEMS Constitutional: No fever, no chills, no night sweats. No weight change. No weakness, fatigue or lethargy. No daytime sleepiness. EENT: No headache. No blurred vision or double vision, no loss of vision. No loss of Hearing, no ringing in the ears, no dizziness. No nasal drainage or congestion. No epistaxis. No sore throat. Lungs: No shortness of breath, cough, no sputum production. No wheezing. Cardiovascular: No chest pain, no lower extremity edema. No palpitations. No paroxysmal nocturnal dyspnea. No orthopnea. No lightheadedness or dizziness. No syncopal episodes. Abdominal: No abdominal pain. No nausea, vomiting. No diarrhea. No constipation. No bloody or tarry stools.. No loss of appetite. Genitourinary: No dysuria, increased frequency, urgency. No urinary retention. Musculoskeletal: No myalgias. No muscle weakness, no gait dysfunction, no frequent falls. No back pain. No neck pain. Mild knee discomfort. Integumentary: No wounds, no lesions. No rash or pruritus. No unusual bruising. No change in hair or nails. Neurologic: No aphasia. No facial droop. No change in mentation. No head injury. No headache. No paralysis. No paresthesia. Psychiatric: No depression. No anxiety. No mood swings. Endocrine: No abnormal blood sugars. No weight change. No excessive sweating or thirst. No cold intolerance. SOCIAL HISTORY The patient is a lifelong nonsmoker, no illicit drug use, no alcohol use. Patient lives alone. Her son is staying with her after discharge from the hospital. FAMILY HISTORY Mother at age 79 with history of coronary artery disease. Father at age 86 from emphysema. Patient has 1 brother that from myocardial infarction at age 46. Patient does not have any sisters. Patient's 3 sons with no major medical problems. PHYSICAL EXAMINATION Gen: This is an 81-year-old female. Patient is resting in bed appears to be comfortable and in no acute distress. HEENT: Head is atraumatic, normocephalic. Pupils equal, round. Sclerae is anicteric. NECK: Supple. No JVD. No lymphadenopathy. No thyromegaly. LUNGS: Clear to auscultation. No wheezes or rhonchi. No intercostal retractions. HEART: Regular rate and rhythm. No murmur. ABDOMEN: Soft. Bowel sounds are present. No masses. No tenderness. EXTREMITIES: No pedal edema. No calf tenderness. Mild edema to theright knee. Dressing midline with no breakthrough bleeding or draining. NEUROLOGICAL: Patient is awake, alert and oriented x3. Cranial nerves 2 through 12 are grossly intact. ASSESSMENT AND PLAN 1. Osteoarthritis status post right knee arthroplasty, postoperative day #1. Continue PT/OT, activity per orthopedics, pain management, DVT prophylaxis is Lovenox. Continue incentive spirometry to reduce incidence of atelectasis and hospital-acquired pneumonia.. 2. Generalized osteoarthritis, stable. 3. Osteoporosis, stable. 4. DVT prophylaxis. Lovenox. DISCHARGE PLAN Home with [facility]. Impression and plan of care have been directed as dictated by the signing physician. Heena Tilley nurse practitioner acting as scribe for signing physician. Past Medical History Past Medical History: Osteoarthritis (OA) History of Any Multi-Drug Resistant Organisms: None Reported Past Surgical History: Joint Replacement, Orthopedic Surgery Additional Past Surgical History / Comment(s): surg. for ectopic years ago, left knee replaced 2020, ORIF right hip, cataracts removed Past Anesthesia/Blood Transfusion Reactions: No Reported Reaction Past Psychological History: Depression Smoking Status: Former smoker Past Alcohol Use History: Rare Additional Past Alcohol Use History / Comment(s): quit smoking 1990, smoked for 10 yrs. Past Drug Use History: None Reported - Past Family History Mother Family Medical History: No Reported History Medications and Allergies Home Medications Medication Instructions Recorded Confirmed Type Alendronate Sodium [Fosamax] 70 mg PO TH 06/12/21 02/04/22 History Celecoxib [CeleBREX] 200 mg PO DAILY 06/12/21 02/04/22 History Acetaminophen Tab [Tylenol] 650 mg PO Q4H PRN 01/31/22 02/04/22 History Multivitamins, Thera [Multivitamin 1 each PO DAILY@1200 tab 02/05/22 Rx (formulary)] Sennosides-Docusate Sodium 2 each PO HS tab 02/05/22 Rx [Senokot-S] Allergies Allergy/AdvReac Type Severity Reaction Status Date / Time Penicillins Allergy Swelling Verified 02/04/22 09:03 of joints Physical Exam Vitals: Vital Signs Temp Pulse Resp BP Pulse Ox 02/05/22 01:28 98.6 F 88 16 156/72 94 L 02/04/22 22:49 98.6 F 92 18 128/68 97 02/04/22 20:00 97.9 F 104 H 18 131/68 96 02/04/22 16:02 97.6 F 89 17 167/70 96 02/04/22 15:19 74 20 167/78 95 02/04/22 14:34 64 18 136/65 93 L 02/04/22 14:03 66 20 151/72 92 L 02/04/22 13:32 60 18 139/63 95 02/04/22 13:15 66 20 157/67 93 L 02/04/22 13:01 62 18 142/66 94 L 02/04/22 12:45 68 18 144/65 94 L 02/04/22 12:37 64 18 137/64 94 L 02/04/22 12:22 61 16 142/63 96 02/04/22 12:06 96.8 F L 66 20 154/70 96 02/04/22 09:56 71 14 147/65 99 02/04/22 09:01 97.6 F 89 16 198/84 97 Intake and Output 02/04/22 02/05/22 02/05/22 22:59 06:59 14:59 Intake Total 350 400 Balance 350 400 Intake: Oral 350 400 Other: Voiding Method Bedside Commode # Voids 2 3 Weight 60 kg Results CBC & Chem 7: 02/05/22 05:43
[2022-02-05] MEDS ORDERED: ENOXAPARIN 40 MG/0.4 ML SYRINGE SQ SCH (09:00)
[2022-02-05 09:17] LABS: Basophils # (A) 0.02 X 10*3/uL (0.00-0.10); Basophils % (A) 0.2 %; Eosinophils # (A) 0.01 X 10*3/uL (0.04-0.35); Eosinophils % (A) 0.1 %; HCT 34.6 % (37.2-46.3); HGB 11.3 g/dL (12.0-15.0); Immature Grans, Automated 1.1 %; Lymphocytes # (A) 1.28 X 10*3/uL (0.90-5.00); Lymphocytes % (A) 10.9 %; MCH 31.1 pg (27.0-32.0); MCHC 32.7 g/dL (32.0-37.0); MCV 95.3 fL (80.0-97.0); Mean Platelet Volume 10.9 fL (9.5-12.2); Monocytes # (A) 0.77 X 10*3/uL (0.20-1.00); Monocytes % (A) 6.5 %; NRBC Per 100 WBC 0 /100 WBCS (0.0-0.0); Neutrophils # (A) 9.55 X 10*3/uL (1.80-7.70); Neutrophils % (A) 81.2 %; Platelet Count 229 X 10*3/uL (140-440); RBC 3.63 X 10*6/uL (4.10-5.20); RDW 12.8 % (11.5-14.5); WBC 11.76 X 10*3/uL (4.50-10.00)
[2022-02-05 09:38] VITALS: BP 165/65; PULSE 85; TEMP 98.7
--- NOTE | 2022-02-05 10:48 | P.PN ---
Subjective Progress Note Date: 02/05/22 Principal diagnosis: status post right total knee arthroplasty Patient was evaluated today at bedside, she is sitting at the edge of the bed. She is rather comfortable at this time, her pain is currently controlled. She has been a minimally with the assistance of a walker. She has ambulated with physical therapy and did well with stairs. She currently denies any headaches, lightheadedness, chest pain, shortness of breath, abdominal discomfort, nausea/vomiting, fever or chills Objective - Vital Signs Vital signs: Vital Signs Temp 98.7 F 02/05/22 08:00 Pulse 85 02/05/22 08:00 Resp 16 02/05/22 08:00 BP 165/65 02/05/22 08:00 Pulse Ox 92 L 02/05/22 08:00 Intake & Output 02/04/22 02/05/22 02/05/22 18:59 06:59 18:59 Intake Total 1751 550 Output Total 50 Balance 1701 550 Weight 60 kg Intake: IV 1551 Oral 200 550 Output: Estimated Blood Loss 50 Other: Voiding Method Bedside Commode Toilet # Voids 2 3 - Exam Right lower extremity: Incision is clean, dry, and intact. The foam dressing is in good condition. There is minimal soft tissue swelling and ecchymosis surrounding the medial and lateral aspects of the incision. Calf is soft, no tenderness with palpation. Plantar flexion, dorsiflexion, EHL, FHL are intact. Sensory exam to light touch throughout the extremity is intact, dorsal pedis pulses 2+. - Labs CBC & Chem 7: 02/05/22 05:43 Labs: Abnormal Lab Results - Last 24 Hours (Table) 02/05/22 Range/Units 05:43 WBC 11.76 H (4.50-10.00) X 10*3/uL RBC 3.63 L (4.10-5.20) X 10*6/uL Hgb 11.3 L (12.0-15.0) g/dL Hct 34.6 L (37.2-46.3) % Immature Gran # 0.13 H (0.00-0.04) X 10*3/uL Neutrophils # 9.55 H (1.80-7.70) X 10*3/uL Eosinophils # 0.01 L (0.04-0.35) X 10*3/uL Assessment and Plan Assessment: Postoperative day #1 status post right total knee arthroplasty Plan: Pain control, plan for discharge on [place] 5 mg/325 mg DVT prophylaxis, aspirin 81 mg twice a day for 30 days Wound care instructions were discussed, this included showering instructions Icing and elevating techniques discuss Home physical therapy/nursing after discharge Medical recommendations Discharge planning: Plan for discharge home later today Time with Patient: Less than 30
--- NOTE | 2022-02-05 10:51 | P.DS ---
Providers Date of admission: 02/04/2022 Expected date of discharge: 02/05/22 Attending physician: Hadley Kulkarni Consults: 02/04/22 11:49 Consult Physician Routine Consulting Provider: Jimmy Faye Reason/Comments: Medical management Do you want consulting provider notified?: Yes [facility] Course: Date of admission: 02/04/2022 Date of discharge: 02/05/2022 Admission diagnosis: Status post right total knee arthroplasty Discharge diagnosis: Same Attending physician: Dr. Kulkarni Surgical procedures: Right total knee arthroplasty Brief history: Patient is a 81-year-old female with a history of progressive primary right knee osteoarthritis. At this point patient has failed conservative treatment measures and has opted to proceed with a elective right total knee arthroplasty. Hospital course: Details of patient's surgery can be found in operative report. Patient tolerated the procedure well and was subsequently transported to orthopedic floor. Patient's orthopeidc and medical care was provided daily. Patient had daily laboratory tests performed for evaluation of overall blood counts. Patient had daily physical therapy to include strengthening range of motion as well as education with walker ambulation. Patient was treated with Lovenox for their postoperative DVT prophylaxis during their inpatient stay. Patient was noted to have a relatively uneventful postoperative course. Patient reported satisfactory pain control with oral pain medications by postoperative day 0. Patient showed satisfactory progress with physical therapy. Patient moved steadily through the program and had no difficulty meeting the goals by postoperative day 1. Given patient's otherwise satisfactory course and having met physical therapy goals, plan is to discharge patient home on postoperative day 1. Discharge condition/disposition: Patient will be discharged home in stable condition. Discharge medications: Instructions are given on resumption of patient's normal daily medications per primary care recommendation, in addition patient will be prescribed Silva 5 mg/325 mg, aspirin 81 mg. Discharge instructions: 1. Wound care and infection precautions, keep incision dry and covered while showering, no lotions, creams, moisturizers. No soaking, tubs, pools, hottubs. Do not scrub over the incision. 2. Weight-bear as tolerated with walker / cane until follow-up. 3. Ice and elevate when necessary. Do not exceed 20 minutes per hour with ice pack. 4. Utilize compression sleeve until seen at first follow up appointment. 5. Visiting nursing care. 6. Home physical therapy including home CPM. 7. Pain meds and anticoagulants per prescription. 8. Pain medication has potential to cause constipation. Increase oral fluid and fiber intake. Contact primary care provider if you have not had a bowel movement within 48 hours after discharge 9. No anti-inflammatory medication until discussed at first post operative visit, this including Motrin, Aleve, Mobic, Diclofenac. 10. Follow up in office at 2 weeks postop with Yazan Crain PA-C/Piotr Vargas 11. Follow up with your primary care doctor 7-10 days after discharge. 12. Contact [facility] with any questions, . Procedures: Right total knee arthroplasty Patient Condition at Discharge: Good Plan - Discharge Summary Discharge Rx Participant: Yes New Discharge Prescriptions: New Aspirin [Adult Low Dose Aspirin EC] 81 mg PO BID #60 tab Multivitamins, Thera [Multivitamin (formulary)] 1 each PO DAILY@1200 tab Sennosides-Docusate Sodium [Senokot-S] 2 each PO HS tab HYDROcodone/APAP 5-325MG [Silva 5-325] 1 tab PO Q4HR PRN #42 tab PRN Reason: Pain Continue Alendronate Sodium [Fosamax] 70 mg PO TH Celecoxib [CeleBREX] 200 mg PO DAILY Acetaminophen Tab [Tylenol] 650 mg PO Q4H PRN PRN Reason: Pain Discharge Medication List Alendronate Sodium [Fosamax] 70 mg PO TH 06/12/21 [History] Celecoxib [CeleBREX] 200 mg PO DAILY 06/12/21 [History] Acetaminophen Tab [Tylenol] 650 mg PO Q4H PRN 01/31/22 [History] Aspirin [Adult Low Dose Aspirin EC] 81 mg PO BID #60 tab 02/05/22 [Rx] HYDROcodone/APAP 5-325MG [Silva 5-325] 1 tab PO Q4HR PRN #42 tab 02/05/22 [Rx] Multivitamins, Thera [Multivitamin (formulary)] 1 each PO DAILY@1200 tab 02/05/22 [Rx] Sennosides-Docusate Sodium [Senokot-S] 2 each PO HS tab 02/05/22 [Rx] Follow up Appointment(s)/Referral(s): Bishop Crain PAC [PHYSICIAN CLOTH OPENER HAND] - 2 Weeks Kt Mac MD [Primary Care Provider] - 1 Week Patient Instructions/Handouts: Knee Replacement (DC) Activity/Diet/Wound Care/Special Instructions: Orthopedic Discharge Instructions: 1. Wound care and infection precautions, keep incision dry and covered while showering, no lotions, creams, moisturizers. No soaking, pools, hot tubs. Do not scrub over incision. 2. Weight-bear as tolerated with walker / cane until follow-up. 3. Ice and elevate when necessary. Do not exceed 20 minutes per hour with ice pack. 4. Utilize compression sleeve until seen at first follow up appointment. 5. Pain meds and anticoagulants per prescription. 6. Pain medication has potential to cause constipation. Increase oral fluid and fiber intake. Contact primary care provider if you have not had a bowel movement within 48 hours after discharge. 7. No anti-inflammatory medication until discussed at first post operative visit, this including Motrin, Aleve, Mobic, Diclofenac. 8. Follow up in office at 2 weeks postop with Yazan Crain PA-C / Piotr Wagoner PA-C 9. Follow up with your primary care doctor 7-10 days after discharge. 10. Contact [facility] with any questions, . Keep incision clean, dry, intact. While showering, cover silver foam dressing with Saran wrap. Silver foam dressing may be removed in 7 days, 02/11/2022 Medications: Discharge Disposition: HOME WITH HOME HEALTH SERVICES
[2022-02-05] MEDS ORDERED: MULTIVITAMINS, THERA 1 EACH TAB PO SCH (12:00)
== END 2022-02-05 14:01 | disposition home health service (06) ==
LOC: OR 08:01 → 4SSUR 12:00 → OR 02-05 14:01
PROVIDERS: ATTEND Orthopaedic Surgery
DX: M17.11 Unilateral primary osteoarthritis, right knee (principal); F17.200 Nicotine dependence, unspecified, uncomplicated; F41.9 Anxiety disorder, unspecified; Z79.899 Other long term (current) drug therapy; M19.90 Unspecified osteoarthritis, unspecified site; M81.0 Age-related osteoporosis without current pathological fracture; Z79.1 Long term (current) use of non-steroidal anti-inflammatories (NSAID); Z79.82 Long term (current) use of aspirin; Z82.49 Family history of ischemic heart disease and other diseases of the circulatory system; Z87.59 Personal history of other complications of pregnancy, childbirth and the puerperium; Z88.0 Allergy status to penicillin; G89.18 Other acute postprocedural pain
CPT/HCPCS: 27447; 97161; 64999; 64448; 76942; 85025; 88300; 73560; C1776; C1713 ×2; J2250; J1100; J0690 ×3; J2405; J1650; J3010; J2795